=== PATIENT | female | born 1955 | race Caucasian/White ===

== ENCOUNTER 2019-02-25 11:17 | Outpatient (CLI) | payer OTHER, SELFPAY ==
--- NOTE | 2019-02-25 10:30 | DI.RAD_ITS ---
EXAM: XR HIP LT COMPLETE AP PELVIS INDICATION: L hip pain. COMPARISON: No exams were available for comparison TECHNIQUE: 2D digital imaging was performed. FINDINGS: The patient has a right total hip replacement. The orthopedic hardware appears in good position. Ther e is mild subchondral sclerosis and periarticular spurring in the left hip. The bones appear intact and normally mineralized. Sacroiliac joints and symphysis pubis are unremarkable. IMPRESSION: Mild degenerative changes of the left hip.
--- NOTE | 2019-02-25 10:58 | DI.RAD_ITS ---
EXAM: XR LUMBAR SPINE COMPLETE INDICATION: back pain. COMPARISON: No exams were available for comparison TECHNIQUE: 2D digital imaging was performed. FINDINGS: There are 5 lumbar type vertebral bodies. No spondylolysis or spondylolisthesis is seen. No acute f ractures or subluxations are present. There is disc space narrowing at L3-4, L4-5 and L5-S1. There are degenerative changes of the facets seen throughout the lumbar spine. The findings are most marke d at L4-5 and L5-S1. There is anterolisthesis of L3 on L4. There is a right convex scoliotic curvat ure in the lower lumbar spine. IMPRESSION: Moderately severe degenerative changes in the lumbar spine.
== END 2019-02-25 11:37 ==
PROVIDERS: PCP Internal Medicine; Visit Provider Student in an Organized Health Care Education/Training Program
DX: M54.5 Low back pain (principal); M51.37 Other intervertebral disc degeneration, lumbosacral region; M47.817 Spondylosis without myelopathy or radiculopathy, lumbosacral region; M25.552 Pain in left hip; Z96.641 Presence of right artificial hip joint; M16.12 Unilateral primary osteoarthritis, left hip
CPT/HCPCS: 72110; 73502

== ENCOUNTER → 2019-06-10 08:06 | Outpatient (BNVA) | payer MEDICARE, OTHER, SELFPAY | PROVIDERS: PCP Internal Medicine; Referring Provider Internal Medicine; Visit Provider Student in an Organized Health Care Education/Training Program | DX: M79.652 Pain in left thigh (principal); M48.00 Spinal stenosis, site unspecified | CPT/HCPCS: 99213 ==

== ENCOUNTER 2019-06-21 02:35 | Outpatient (CLI) | payer MEDICARE, SELFPAY ==
--- NOTE | 2019-06-21 13:15 | DI.MRI_ITS ---
EXAM: MR LUMBAR SPINE WO CLINICAL HISTORY: LEFT LOWER EXTREMITY PAIN, SPINAL STENOSIS, M48.00. TECHNIQUE: Multiplanar multisequence MRI was performed. COMPARISON: XR LUMBAR SPINE COMPLETE from 02/25/2019 FINDINGS: Prominent scoliosis is seen. No compression fractures are seen. The conus medullaris appears normal . The aorta is normal in diameter. Several hemangiomas are seen at multiple levels. There are nerv e root sheath cysts bilaterally at the S1 level. The T11-12, T12-L1 and L1-2 levels are unremarkable. At L2-3, there is loss of disc height, which is eccentric toward the right. There are prominent endp late osteophytes projecting toward the right. There are also facet degenerative changes and ligament ous hypertrophy. The combination of the degenerative changes cause [id number] central canal st enosis and [id number] bilateral neural foraminal narrowing. At L3-4, there is loss of disc height, which is eccentric toward left where there are broad-based ost eophytes. There are prominent facet degenerative changes as well as ligamentous hypertrophy, which c ombine to produce a moderate degree of central canal stenosis. There is bilateral moderate neural fo raminal narrowing. At L4-5, there is asymmetric disc space narrowing, severe toward the left side where there are promin ent disc osteophytes. There are facet degenerative changes greater on the left side. There is sever e left neural foraminal narrowing, no significant right neural foraminal narrowing. There is no sign ificant central canal stenosis. At the L5-S1 level, disc appears intact. There are facet degenerative changes at L5-S1 greater on th e right side. There is no significant neural foraminal narrowing. IMPRESSION: Severe degenerative disc changes, facet degenerative changes and scoliosis cause neural foraminal benito rowing at multiple levels. Moderate central canal stenosis is seen at L3-4. No disc herniation is s een at any level. DATA REPOSITORY:
== END 2019-06-21 02:55 ==
PROVIDERS: PCP Internal Medicine; Visit Provider Physician Assistant
DX: M48.061 Spinal stenosis, lumbar region without neurogenic claudication (principal); M48.07 Spinal stenosis, lumbosacral region; M25.78 Osteophyte, vertebrae; M51.16 Intervertebral disc disorders with radiculopathy, lumbar region; M47.26 Other spondylosis with radiculopathy, lumbar region
CPT/HCPCS: 72148

== ENCOUNTER → 2019-11-28 08:48 | Outpatient (BNVA) | payer MEDICARE, SELFPAY | PROVIDERS: PCP Internal Medicine; Referring Provider Internal Medicine; Visit Provider Student in an Organized Health Care Education/Training Program | DX: M48.07 Spinal stenosis, lumbosacral region (principal); M79.652 Pain in left thigh | CPT/HCPCS: 99213 ==

== ENCOUNTER 2020-01-14 07:31 | Outpatient (CLI) | payer MEDICARE, SELFPAY ==
[2020-01-16 12:18] LABS: Patient Race White; SARS-CoV-2 RNA Undetected (Undetected); SARS-CoV-2 Specimen Source Nasopharynx
== END 2020-01-14 07:51 ==
PROVIDERS: PCP Internal Medicine; Visit Provider Internal Medicine
DX: Z20.828 Contact with and (suspected) exposure to other viral communicable diseases (principal)
CPT/HCPCS: U0003